=== PATIENT | female | born 1950 | race Caucasian/White ===

== ENCOUNTER 2020-11-14 13:22 | Emergency (ER) | payer MEDICARE ==
[2020-11-14 13:35] VITALS: RESP 18
--- NOTE | 2020-11-14 14:59 | CT ---
EXAMINATION TYPE: CT brain reena guzmán DATE OF EXAM: 11/14/2020 COMPARISON: None available HISTORY: Fall. CT DLP: 1465.3 mGycm Automated exposure control for dose reduction was used. TECHNIQUE: CT scan of the head and cervical spine are performed without contrast. Sagittal and yousif l reformatted images were obtained FINDINGS: Head: No acute intracranial hemorrhage, mass effect, or midline shift. Ventricles are of normal caliber wit hout hydrocephalus. No definite evidence of large vessel territorial infarction. Mild diffuse decreas ed attenuation within the periventricular white matter likely chronic small vessel ischemic change. Calvarium appears intact. Visualized paranasal sinuses and mastoid air cells appear clear. Bilateral globes appear symmetric and unremarkable. Cervical spine: Lumbar vertebral body heights are maintained. Straightening of the cervical lordosis, which may relat e to patient positioning or muscle spasm. No acute fracture or traumatic subluxation. Advanced multil evel degenerative disc changes most pronounced at the level of C6-7 with disc height loss and osteoph yte formation. Advanced facet arthropathy most pronounced upper cervical spine eccentric to the left. Multilevel uncovertebral hypertrophy, right greater than left, most pronounced at the level of C5-6 on the right and C6-7 bilaterally. Varying degrees of neural foraminal narrowing throughout the cervi laverne spine which appears at least moderate to severe at C3-4 on the left, C4-5 on the left, and C5-6 o n the right. At least moderate spinal canal stenosis at the level of C6-7 secondary to posterior disc osteophyte complex. No prevertebral soft tissue swelling. Visualized lung apices appear clear. IMPRESSION: 1. No acute intracranial process. 2. No acute fracture or traumatic subluxation of the cervical spine. 3. Advanced multilevel degenerative changes of the cervical spine resulting in varying degrees of shaquille ral foraminal narrowing and at least moderate spinal canal stenosis at C6-7.
[2020-11-14] MEDS ORDERED: Acetaminophen-Codeine 300-30mg TAB PO STA (15:09)
--- NOTE | 2020-11-14 15:40 | XR ---
EXAMINATION TYPE: XR chest 2V DATE OF EXAM: 11/14/2020 COMPARISON: NONE HISTORY: Fall, right shoulder pain TECHNIQUE: Frontal and lateral views of the chest are obtained. FINDINGS: There is no focal air space opacity, pleural effusion, or pneumothorax seen. The cardiac silhouette size is within normal limits. Surgical changes consistent with total arthroplasties of the bilateral shoulders; otherwise, the osseous structures appear intact. Mild multilevel degenerative c hanges of the thoracic spine. IMPRESSION: No acute cardiopulmonary process.
--- NOTE | 2020-11-14 15:48 | XR ---
EXAMINATION TYPE: XR shoulder complete RT DATE OF EXAM: 11/14/2020 COMPARISON: NONE HISTORY: Fall, right shoulder pain TECHNIQUE: Frontal, scapular Y, and Grashey views of the right shoulder obtained. FINDINGS: Right shoulder total arthroplasty changes. Ossific fragment projecting over the inferior axillary rec ess on the frontal view is favored to represent heterotopic bone in the setting of prior surgery. No dislocation. Midclavicular and coracoclavicular distances are within normal limits. Visualized lung a ppears clear. IMPRESSION: 1. Postsurgical changes of right shoulder total arthroplasty. 2. Ossific fragment projecting over the inferior axillary recess on the frontal view which is favored to represent heterotopic bone in the setting of prior surgery. Recommend correlation with prior imag ing if available: Otherwise, CT can be obtained if clinically indicated. 3. No dislocation.
[2020-11-14] MEDS ORDERED: ACET/COD 300 MG/30 MG STARTER PACK 6 TAB BTL PO STA (16:59)
--- NOTE | 2020-11-14 17:04 | CT ---
EXAMINATION TYPE: CT shoulder RT wo con DATE OF EXAM: 11/14/2020 COMPARISON: Right shoulder radiograph same day HISTORY: Right shoulder pain after fall. CT DLP: 1001.2 mGycm Automated exposure control for dose reduction was used. TECHNIQUE: Enhanced axial CT images were obtained of the right shoulder without the administration of intravenous contrast. Sagittal and coronal reformatted images were obtained. 3-D post processing rec onstructions were performed on an independent workstation. FINDINGS: Surgical changes consistent with total arthroplasty of the right shoulder. Ossific fragment inferior to the inferior margin the humeral head which does not have well-corticated margins throughout its superior aspect and may represent fractured osteophyte. No dislocation. Acromioclavicular and coracoclavicular distances are within normal limits. Partially visualized lung demonstrates dependent atelectasis and otherwise clear. IMPRESSION: 1. Right total shoulder arthroplasty. 2. Ossific fragment inferior to the inferior margin of the humeral head may represent a fractured ost eophyte. Recommend correlation with prior imaging.
--- NOTE | 2020-11-14 17:13 | ED ---
Fall HPI - General Chief Complaint: Fall Stated Complaint: fall Time Seen by Provider: 11/14/20 13:29 Source: EMS Mode of arrival: EMS - History of Present Illness Initial Comments: 70-year-old female presents to emergency Department with the chief complaint of a fall. She states this occurred about one hour prior to arrival. Patient brought to the ED via EMS. She was given 100 g of fentanyl in the ambulance. She had a c-collar on arrival. Patient reports she was at religious when she was going down the stairs, had a trip and fall accident and fell down 3 stairs and landed mostly on the right side of her body. She does not recall significant injury to her head but does report pain and right shoulder. Nothing also consciousness and blood thinners. States mostly the pain is located in the right shoulder she does have previous surgery and hardware in the region. States she has pain with abduction of the arm, especially above 90. Denies any paresthesias or weakness in the arm. Denies any blurry vision: Sided weakness and paresthesias. Denies any other complaints. - Related Data Home Medications Medication Instructions Recorded Confirmed Aspirin EC [Ecotrin Low Dose] 81 mg PO DAILY 11/14/20 11/14/20 Cyanocobalamin (Vitamin B-12) 1,000 mcg PO DAILY 11/14/20 11/14/20 [Vitamin B-12] DULoxetine HCL [Cymbalta] 60 mg PO DAILY 11/14/20 11/14/20 Famotidine [Pepcid] 20 mg PO DAILY 11/14/20 11/14/20 Levothyroxine Sodium [Synthroid] 50 mcg PO DAILY 11/14/20 11/14/20 Nystatin 100,000 Unit/gm Powd 1 applic TOPICAL BID PRN 11/14/20 11/14/20 [Mycostatin Powder] Primidone [Mysoline] 50 mg PO BID 11/14/20 11/14/20 Rosuvastatin [Crestor] 10 mg PO HS 11/14/20 11/14/20 Zolpidem [Ambien] 10 mg PO HS PRN 11/14/20 11/14/20 rOPINIRole HCL [Requip] 1 - 2 mg PO HS PRN 11/14/20 11/14/20 Allergies Allergy/AdvReac Type Severity Reaction Status Date / Time Iodinated Contrast Media Allergy Anaphylaxis Verified 11/14/20 16:09 Review of Systems ROS Statement: Those systems with pertinent positive or pertinent negative responses have been documented in the HPI. ROS Other: All systems not noted in ROS Statement are negative. Past Medical History Past Medical History: COPD, Hypertension History of Any Multi-Drug Resistant Organisms: None Reported Past Surgical History: Hysterectomy, Joint Replacement, Orthopedic Surgery Additional Past Surgical History / Comment(s): spinal stenosis,bilat shoulder replacement Past Psychological History: Depression Smoking Status: Never smoker Past Alcohol Use History: None Reported Past Drug Use History: Marijuana General Exam Limitations: no limitations General appearance: alert, in no apparent distress Head exam: Present: atraumatic, normocephalic, normal inspection. Absent: other (Negative Macdonald sign, raccoon eyes, hemotympanum.) Eye exam: Present: normal appearance, PERRL, EOMI. Absent: scleral icterus, conjunctival injection, nystagmus Pupils: Present: normal accommodation ENT exam: Present: normal exam, normal oropharynx, mucous membranes moist, TM's normal bilaterally, normal external ear exam Neck exam: Present: normal inspection, full ROM. Absent: tenderness, lymphadenopathy Respiratory exam: Present: normal lung sounds bilaterally. Absent: respiratory distress, wheezes, rales, rhonchi, stridor Cardiovascular Exam: Present: regular rate, normal rhythm, normal heart sounds. Absent: systolic murmur, diastolic murmur GI/Abdominal exam: Present: soft. Absent: distended, tenderness, guarding, rebound, rigid Extremities exam: Present: normal inspection, tenderness (Posterior deltoid tenderness), normal capillary refill, other (Palpable ulnar and radial pulses bilaterally. Palpable DP and PT bilaterally. Sensation intact in bilateral upper and lower extremities.). Absent: full ROM (Laboratory range of motion with abduction above 90), pedal edema, joint swelling, calf tenderness Back exam: Present: normal inspection, full ROM. Absent: tenderness, CVA tenderness (R), CVA tenderness (L), muscle spasm, paraspinal tenderness, vertebral tenderness Neurological exam: Present: alert, oriented X3, CN II-XII intact Psychiatric exam: Present: normal affect, normal mood Skin exam: Present: warm, dry, intact, normal color Course Vital Signs 11/14/20 11/14/20 11/14/20 13:24 15:36 17:31 Temperature 98.5 F 98 F Pulse Rate 57 L 58 L 59 L Respiratory 18 18 18 Rate Blood Pressure 114/52 109/51 109/56 O2 Sat by Pulse 95 97 95 Oximetry Medical Decision Making - Medical Decision Making 70-year-old female presenting to emergency Department with a chief complaint of fall. On physical examination, posterior deltoid tenderness with limited range of motion with abduction. No obvious signs of head trauma. She had a c-collar in place on arrival. Patient was given Tylenol 3 for pain. X-ray of the right shoulder reveal postsurgical changes with total arthroplasty. There was also a fragment projecting along the anterior axillary process which was of questionable importance. Radiology recommended CT imaging. CT revealed a fragment inferior to the inferior margins of the humeral head which may rep resent a fractured osteophyte. Patient was given a sling. Chest x-ray was remarkable. CT of the brain and C-spine show no acute findings. The c-collar was cleared. Patient will be discharged with a Tylenol 3 starter pack. I gave her contact information for antenna specialist. Strict return parameters were thoroughly discussed patient was understanding and agreeable. Case discussed with physician. Disposition Clinical Impression: Fall, Right shoulder injury Disposition: HOME SELF-CARE Condition: Stable Instructions (If sedation given, give patient instructions): Fall Prevention (ED) Additional Instructions: Follow-up with antenna specialist. Return to emergency department if symptoms worsen. Is patient prescribed a controlled substance at d/c from ED?: No Referrals: Nonstaff,Physician [Primary Care Provider] - 1-2 days César Meraz MD [STAFF PHYSICIAN] - 1-2 days Time of Disposition: 17:13
[2020-11-14] MEDS ORDERED: MORPHINE SULFATE 4 MG/ML SYRINGE IVP STA (17:20)
[2020-11-14 17:34] VITALS: BP 109/56; PULSE 59; TEMP 98
== END 2020-11-14 17:36 | disposition home or self-care (01) ==
LOC: EC 13:22
DX: S49.91XA Unspecified injury of right shoulder and upper arm, initial encounter (principal); I10 Essential (primary) hypertension; J44.9 Chronic obstructive pulmonary disease, unspecified; Z91.041 Radiographic dye allergy status; W10.9XXA Fall (on) (from) unspecified stairs and steps, initial encounter; Y92.22 Religious institution as the place of occurrence of the external cause
CPT/HCPCS: 73030; 71046; 72125; 70450; 73200; 99284; 96374; J2270

== ENCOUNTER → 2021-06-23 | Outpatient (CLI) | payer MEDICARE, OTHER ==
--- NOTE | 2021-07-01 11:28 | MM ---
Reason for exam: screening (asymptomatic). Last mammogram was performed 8 years and 1 month ago. History: Patient is postmenopausal. Physical Findings: A clinical breast exam by your physician is recommended on an annual basis and results should be correlated with mammographic findings. MG 3D Screening Mammo W/Cad Bilateral CC and MLO view(s) were taken. Prior study comparison: May 14, 2013, mammogram, performed at [place]. There are scattered fibroglandular densities. There are benign appearing round calcifications bilaterally. There is chronic nodularity in the left breast. There is no discrete abnormality. ASSESSMENT: Benign, BI-RAD 2 RECOMMENDATION: Routine screening mammogram of both breasts in 1 year.
== END | disposition home or self-care (01) ==
LOC: RADMAMWWP 13:59
PROVIDERS: ATTEND Internal Medicine
DX: Z12.31 Encounter for screening mammogram for malignant neoplasm of breast (principal)
CPT/HCPCS: 77063; 77067

== ENCOUNTER → 2021-07-18 | Outpatient (CLI) | payer MEDICARE, OTHER ==
--- NOTE | 2021-07-18 22:54 | BD ---
EXAMINATION TYPE: Axial Bone Density DATE OF EXAM: 07/18/2021 COMPARISON: NONE CLINICAL HISTORY: 70 years year old Female. ICD-10 CODE: Z78.0 POST MENOPAUSAL Height: 62.9 IN Weight: 201 LBS FRAX RISK QUESTIONS: History of Fracture in Adulthood: RT WRIST AGE 70 Secondary Osteoporosis: 3. Menopause before 45: TOTAL HYST AGE 34 Rheumatoid Arthritis: YES RISK FACTORS HISTORY OF: History of Wrist Fracture: RT WRIST AGE 70 Active: YES Diet low in dairy products/other sources of calcium: YES Postmenopausal woman: TOTAL HYST AGE 34 MEDICATIONS: Thyroid Medications: YES Which medication: Levothyroxine How Lon+ YEARS Additional Medications: LEVOTHYROXINE, CRESTOR, METOPROLOL, CYMBALTA, GABAPENTIN, ASPIRIN 81 MG, B12, AMBIEN, PRIMIDONE, ROPINIROLE, EXAM MEASUREMENTS: Bone mineral densitometry was performed using the [employer]Event System. Bone mineral density as measured about the Lumbar spine is: ----- L1-L4(G/cm2): 1.526 T Score Values are as follows: ----- L1: 2.2 ----- L2: 2.3 ----- L3: 3.1 ----- L4: 3.7 ----- L1-L4: 2.9 Bone mineral density BASELINE Bone mineral density about the R hip (g/cm2): 0.823 Bone mineral density about the L hip (g/cm2): 0.820 T Score values are as follows: -----R Neck: -1.5 -----L Neck: -1.6 -----R Total: -0.4 -----L Total: -0.5 Bone mineral density BASELINE FRAX%s: The graph provided illustrates a 19.2 chance for a major osteoporotic fx and a 3.1 chance for the hips probability for fx in 10 years time. IMPRESSION: Osteopenia (T Score between -2.5 and -1). There is slightly increased risk of fracture and the patient may be considered for treatment. Re-Screen 2-5 years. NOTE: T-SCORE=SD OF THE YOUNG ADULT MEAN.
== END | disposition home or self-care (01) ==
LOC: RADBDWWP 15:02
PROVIDERS: ATTEND Internal Medicine
DX: Z00.00 Encounter for general adult medical examination without abnormal findings (principal); Z13.820 Encounter for screening for osteoporosis; Z78.0 Asymptomatic menopausal state; E03.9 Hypothyroidism, unspecified; I10 Essential (primary) hypertension; E78.2 Mixed hyperlipidemia; F41.8 Other specified anxiety disorders; M12.9 Arthropathy, unspecified; N39.46 Mixed incontinence; Z68.37 Body mass index [BMI] 37.0-37.9, adult; Z78.9 Other specified health status
CPT/HCPCS: 77080

== ENCOUNTER 2022-04-21 14:32 | Emergency (ER) | payer MEDICARE, OTHER ==
[2022-04-21 14:48] VITALS: TEMP 97.9
--- NOTE | 2022-04-21 15:19 | ED ---
General Adult HPI - General Chief complaint: Fall Stated complaint: Fall/Head injury Time Seen by Provider: 04/21/22 15:17 Source: patient, EMS Mode of arrival: EMS Limitations: no limitations - History of Present Illness Initial comments: Patient presents to the ED by ambulance for evaluation. Patient states that she tripped over a step while at the bank this afternoon, causing her to fall forward onto her hands and knees. Patient states that she also hit her left frontal head on the ground when she fell. Patient is currently complaining of having bilateral knee pain and a left frontal headache where she hit her head. Patient denies any other injury or site of pain. Patient states that she has been ambulatory since falling, and she states that she was able to walk into the bank after falling. Patient denies anticoagulant medication use. Patient states that her tetanus is up-to-date. Patient denies LOC/syncope, focal numbness/weakness/neuro deficit, visual changes, speech difficulty, neck/back/upper extremity/hip pain, chest pain, dyspnea, palpitations, dizziness, abdominal pain, nausea or vomiting, or any other symptoms or compla ints. - Related Data Home Medications Medication Instructions Recorded Confirmed Aspirin EC [Ecotrin Low Dose] 81 mg PO DAILY 11/14/20 11/14/20 Cyanocobalamin (Vitamin B-12) 1,000 mcg PO DAILY 11/14/20 11/14/20 [Vitamin B-12] DULoxetine HCL [Cymbalta] 60 mg PO DAILY 11/14/20 11/14/20 Famotidine [Pepcid] 20 mg PO DAILY 11/14/20 11/14/20 Levothyroxine Sodium [Synthroid] 50 mcg PO DAILY 11/14/20 11/14/20 Nystatin 100,000 Unit/gm Powd 1 applic TOPICAL BID PRN 11/14/20 11/14/20 [Mycostatin Powder] Primidone [Mysoline] 50 mg PO BID 11/14/20 11/14/20 Rosuvastatin [Crestor] 10 mg PO HS 11/14/20 11/14/20 Zolpidem [Ambien] 10 mg PO HS PRN 11/14/20 11/14/20 rOPINIRole HCL [Requip] 1 - 2 mg PO HS PRN 11/14/20 11/14/20 Allergies Allergy/AdvReac Type Severity Reaction Status Date / Time Iodinated Contrast Media Allergy Anaphylaxis Verified 11/14/20 16:09 Review of Systems ROS Statement: Those systems with pertinent positive or pertinent negative responses have been documented in the HPI. ROS Other: All systems not noted in ROS Statement are negative. Past Medical History Past Medical History: COPD, Hypertension History of Any Multi-Drug Resistant Organisms: None Reported Past Surgical History: Hysterectomy, Joint Replacement, Orthopedic Surgery Additional Past Surgical History / Comment(s): spinal stenosis,bilat shoulder replacement Past Psychological History: Depression Smoking Status: Never smoker Past Alcohol Use History: None Reported Past Drug Use History: None Reported General Exam Limitations: no limitations General appearance: alert, in no apparent distress Head exam: Present: atraumatic, normocephalic Eye exam: Present: normal appearance, PERRL, EOMI ENT exam: Present: mucous membranes moist, TM's normal bilaterally Neck exam: Present: full ROM, other (Trachea is in midline). Absent: tenderness Respiratory exam: Present: normal lung sounds bilaterally. Absent: respiratory distress, wheezes, rales, rhonchi, stridor, chest wall tenderness Cardiovascular Exam: Present: regular rate, normal rhythm, normal heart sounds, other (Normal radial and dorsalis pedis pulses bilaterally) GI/Abdominal exam: Present: soft. Absent: distended, tenderness, guarding Extremities exam: Present: full ROM, other (Pelvis is stable and nontender; patient has full range of motion at bilateral hips and knees; left anterior knee abrasion, swelling and ecchymosis is noted on exam; mild bilateral knee tenderness) Back exam: Absent: tenderness Neurological exam: Present: alert, oriented X3, CN II-XII intact. Absent: motor sensory deficit Psychiatric exam: Present: normal affect, normal mood Skin exam: Present: warm, dry, normal color Course Vital Signs 04/21/22 14:42 Temperature 97.9 F Pulse Rate 54 L Respiratory 16 Rate Blood Pressure 128/67 O2 Sat by Pulse 98 Oximetry Medical Decision Making - Medical Decision Making Was pt. sent in by a medical professional or institution (, PA, NETWORK SYSTEMS ENGINEER, urgent care, hospital, or prison...) When possible be specific @ -[No] Did you speak to anyone other than the patient for history (EMS, parent, family, police, friend...)? What history was obtained from this source @ -[No] Did you review nursing and triage notes (agree or disagree)? Why? @ -[I reviewed and agree with nursing and triage notes] Were old charts reviewed (outside hosp., previous admission, EMS record, old EKG, old radiological studies, urgent care reports/EKG's, prison records)? Report findings @ -[No old charts were reviewed] Differential Diagnosis (chest pain, altered mental status, abdominal pain women, abdominal pain men, vaginal bleeding, weakness, fever, dyspnea, syncope, headache, dizziness, GI bleed, back pain, seizure, CVA, palpatations, mental health)? @ -Fall, fracture, contusion, hematoma, sprain, head injury, intracranial hemorrhage, abrasion EKG interpreted by me (3pts min.). @ -None done X-rays interpreted by me (1pt min.). @ -Negative bilateral knee x-rays CT interpreted by me (1pt min.). @ -No U/S interpreted by me (1pt. min.). @ -[None done] What testing was considered but not performed or refused? (CT, X-rays, U/S, labs)? Why? @ -[None] What meds were considered but not given or refused? Why? @ -[None] Did you discuss the management of the patient with other professionals (professionals i.e. , PA, NETWORK SYSTEMS ENGINEER, lab, RT, psych nurse, clinical social work therapist, superintendent system operation, teacher, correctional officer, continuous pillowcase cutter)? Give summary @ -[No] Was smoking cessation discussed for >3mins.? @ -[No] Was critical care preformed (if so, how long)? @ -[No] Were there social determinants of health that impacted care today? How? (Homelessness, low income, unemployed, alcoholism, drug addiction, transportation, low edu. Level, literacy, decrease access to med. care, [facility], rehab)? @ -[No] Was there de-escalation of care discussed even if they declined (Discuss DNR or withdrawal of care, Hospice)? DNR status @ -[No] What co-morbidities impacted this encounter? (DM, HTN, Smoking, COPD, CAD, Cancer, CVA, ARF, Chemo, Hep., AIDS, mental health diagnosis, sleep apnea, morbid obesity)? @ -[None] Was patient admitted / discharged? Hospital course, mention meds given and route, prescriptions, significant lab abnormalities, going to OR and other pertinent info. @ -Patient's imaging studies are negative for acute abnormality. Patient denies development of any new pain or symptoms while in the ED. Patient was counseled about contusions, abrasions and head injuries. Patient was clearly explained return and follow-up instructions, and she feels comfortable being discharged home at this time. Patient was instructed to follow up closely with her primary care provider. Patient to get a ride home from the ED this evening. Undiagnosed new problem with uncertain prognosis? @ -[No] Drug Therapy requiring intensive monitoring for toxicity (Heparin, Nitro, Insulin, Cardizem)? @ -[No] Were any procedures done? @ -[No] Diagnosis/symptom? @ -[default] Acute, or Chronic, or Acute on Chronic? @ -Mechanical fall with head injury, left knee abrasion and bilateral knee contusions Uncomplicated (without systemic symptoms) or Complicated (systemic symptoms)? @ -Uncomplicated Side effects of treatment? @ -[No] Exacerbation, Progression, or Severe Exacerbation? @ -[No] Poses a threat to life or bodily function? How? (Chest pain, [place], [place], pneumonia, PE, COPD, DKA, ARF, appy, cholecystitis, CVA, Diverticulitis, Homicidal, Suicidal, threat to staff... and all critical care pts) @ -[No] - Radiology Data Noncontrast head CT: No acute intracranial process. Bilateral knee x-rays: There is no acute fracture or dislocation in either knee. Fairly advanced degenerative changes are present bilaterally. Disposition Clinical Impression: Fall, Head injury, Abrasion of left knee, Contusion, knee Disposition: HOME SELF-CARE Condition: Stable Instructions (If sedation given, give patient instructions): Fall Prevention for Older Adults (ED), Head Injury (ED), Contusion in Adults (ED), Abrasion (ED), Knee Pain (ED) Additional Instructions: Return to the ER immediately should you develop new or worsening pain or symptoms. Follow up closely with your primary care provider. Is patient prescribed a controlled substance at d/c from ED?: No Referrals: Javier Mcrae DO [Primary Care Provider] - 1-2 days Time of Disposition: 17:26
--- NOTE | 2022-04-21 16:33 | XR ---
EXAMINATION TYPE: XR knee complete bilateral DATE OF EXAM: 04/21/2022 CLINICAL HISTORY: Bilaterally with bilateral pain TECHNIQUE: Three views of the bilateral knees are obtained. COMPARISON: None. FINDINGS: There is no acute fracture/dislocation evident in either knee. There is moderate to severe medial tibiofemoral compartment joint space loss bilaterally. There is moderate to severe patellofem oral compartment joint space loss with large bony projections including probable loose body on the ri ght superiorly. Meniscal calcifications are felt present raising concern for underlying chondrocalcin osis. Small to moderate-sized left-sided suprapatellar joint effusion suspected. Overlying soft tissu e is unremarkable bilaterally. IMPRESSION: There is no acute fracture or dislocation in either knee. Fairly advanced degenerative c hanges are present bilaterally.
--- NOTE | 2022-04-21 17:06 | CT ---
EXAMINATION TYPE: CT brain wo con CT DLP: 1107.4 mGycm, Automated exposure control for dose reduction was used. DATE OF EXAM: 04/21/2022 4:45 PM COMPARISON: 11/14/2020. CLINICAL INDICATION:Female, 71 years old with history of fall, head injury, Fall, head injury TECHNIQUE: Brain: Axial CT images of the brain were obtained with coronal and sagittal reformats created and rev iewed. Contrast used: None. Oral contrast used: None. FINDINGS: Brain: Extra-axial spaces: No abnormal extra-axial fluid collections. Ventricular system: Within normal limits Cerebral parenchyma: No acute intraparenchymal hemorrhage or mass effect. The messer-white junction is well differentiated. Cerebellum: Unremarkable. Mass effect: No evidence of midline shift. Intracranial vasculature: unremarkable Soft tissues: Normal. Calvarium/osseous structures: No depressed skull fracture. Paranasal sinuses and mastoid air cells: Mild scattered paranasal sinus disease. Visualized orbits: Orbital contents are intact. IMPRESSION: No acute intracranial process.
[2022-04-21 17:35] VITALS: BP 123/65; PULSE 55; RESP 18
== END 2022-04-21 17:35 | disposition home or self-care (01) ==
LOC: EC 14:32
DX: S80.02XA Contusion of left knee, initial encounter (principal); S09.90XA Unspecified injury of head, initial encounter; J44.9 Chronic obstructive pulmonary disease, unspecified; I10 Essential (primary) hypertension; F32.A Depression, unspecified; Z91.041 Radiographic dye allergy status; Z79.82 Long term (current) use of aspirin; Z79.899 Other long term (current) drug therapy; W01.119A Fall on same level from slipping, tripping and stumbling with subsequent striking against unspecified sharp object, initial encounter
CPT/HCPCS: 70450; 99285

== ENCOUNTER → 2022-06-22 | Outpatient (CLI) | payer MEDICARE, OTHER ==
[2022-06-22 10:11] VITALS: BP 124/73; PULSE 62; RESP 18; TEMP 98.4
--- NOTE | 2022-06-22 14:44 | P.PAINPG ---
PQRS Measure Charge Sheet Comment: HISTORY OF PRESENT ILLNESS: 71 yr old female as a referral from Dr James presents today w severe and chronic LBP secondary to DDD, spondylosis and facet arthropathy without myelopathy for evaluation. Pt states pain level is provoked at 7 /10 in intensity, constant, localized in the lumbar spine, sharp in character w shooting pain towards the L hip. Pain is provoked by weight bearing activity. Pain is alleviated by use of a wheelchair for ambulatory assistance, medications (Neurontin, Tramadol, Tyl Arthritis), topical injections, heating pad use, repositioning and rest. Pt participated in PT in the late right before she moved to [place] but the overexertion provoked pain and she could not finish the sessions. Also admits to chiropractic treatments when she needed to use a cane for ambulatory assistance while living in [place] in the early- mid but those sessions were ineffective in reducing pain. She tries to do PT guided home stretches weekly as tolerated but many times pain is provoked so she can not do them more than a few times a week. She is wheelchair bound currently due to weight bearing activity provoking intractable pain. PMH: OA, COPD, HTN, MDD, RLS PSH: Hysterectomy, BL Shoulder Replacement, Cholecystectomy SH: Negative x3 FH: Non contributory All: See list Meds: See list REVIEW OF ORGAN SYSTEMS: CONSTITUTIONAL: No fevers or chills. No recent weight loss. NEUROLOGICAL: + numbness and tingling along the distal extremities. No seizure disorders or headaches. MUSCULOSKELETAL: + pain PSYCHIATRIC: Denies current depression or suicidal thoughts. Physical Examinations : Constitutional : Cooperative , not in acute distress . Neurologic : Cranial nerve II to XII intact. No focal neurological deficits. Psychiatric : alert & oriented x 3. Matching mood & appropriate affect. Judgment & insight intact. Musculoskeletal : Cervical Spine Motor strength in the deltoid and biceps: Normal right side. Normal Left side Motor strength biceps and the wrist extensors: Normal right side . Normal left side Motor strength in the triceps muscle: Normal right side. Normal left side Deep tendon reflexes: Normal at the biceps. Normal at Brachioradialis. Normal at triceps Vertebral body tenderness to deep palpation over Cervical facet loading test: positive bilaterally Spurling test: positive bilaterally Neck distraction test: positive bilaterally Kishor sign: positive bilaterally Lumbar spine Motor strength lower extremities ,thigh and legs 5/5 Right side , 5/5 Left side Deep tendon reflexes : Normal Knee Jerk. Normal Ankle Jerk Vertebral body tenderness over L2 Lumbar facet Loading Test: positive Right / positive Left Range of motion of the lumbar spine Flexion 30 degrees, extension 10 degrees Straight Leg Raise test: Left/ Right positive at degree Adeola test: positive right / positive left. Severe tenderness over the Sacroiliac joint on the Right / Left sides Gaenslen test: positive bilaterally Seated flexion test: positive bilaterally. Sacral spine : Severe tenderness over the Sacroiliac joint: right side / left side Range of motion: Flexion of the lumbar spine <60 degrees Range of motion: Extension of the lumbar spine <20 degrees Gaenslen's Test positive Faustino's Test positive Adeola test: positive right side / left side Thigh Thrust Test Sacral Thrust Test Imaging: MRI without contrast of the lumbar spine from 12/01/21 reviewed Assessment/ Plan : Lumbar DDD Recommendation of L TFESI L1-L2 #1. May need a series of injections for optimal pain relief. Risks, benefits of procedure discussed and patient verbalized understanding. Admits to aspirin or anti- coagulant use or medical history of diabetes. Protocol for discontinuation/ continuation of medications brandon procedure discussed. All questions answered. I have spent greater than 30 minutes on patient care today. Dr Jara was available by phone for the evaluation of this patient. The time was used to review the medical records including relevant urine studies and Prescription history (MAPs), review of the available imaging, evaluation and examination of the patient, coordination of care with the medical staff and if applicable referring physicians, as well as creation of the medical record - Pain Location Lower Back Non-Pharmacological Interventions: Heat, Inactivity, Physical Therapy, Sitting Pharmacological Interventions: PRN Medication, Scheduled Medication, Topical Medication Home Medications: Ambulatory Orders Aspirin EC [Ecotrin Low Dose] 81 mg PO DAILY 11/14/20 Cyanocobalamin (Vitamin B-12) [Vitamin B-12] 1,000 mcg PO DAILY 11/14/20 DULoxetine HCL [Cymbalta] 60 mg PO DAILY 11/14/20 Famotidine [Pepcid] 20 mg PO DAILY 11/14/20 Levothyroxine Sodium [Synthroid] 50 mcg PO DAILY 11/14/20 Nystatin 100,000 Unit/gm Powd [Mycostatin Powder] 1 applic TOPICAL BID PRN 11/14/20 Primidone [Mysoline] 50 mg PO BID 11/14/20 Rosuvastatin [Crestor] 10 mg PO HS 11/14/20 Zolpidem [Ambien] 10 mg PO HS PRN 11/14/20 rOPINIRole HCL [Requip] 1 - 2 mg PO HS PRN 11/14/20 ALPRAZolam [Xanax] 1 mg PO HS 06/22/22 Acetaminophen [Tylenol 8 Hour] 650 mg PO Q12HR PRN 06/22/22 Cyanocobalamin (Vitamin B-12) [Vitamin B-12] 1,000 mcg PO DAILY 06/22/22 Gabapentin [Neurontin] 100 mg PO TID 06/22/22 Metoprolol Succinate [Toprol XL] 100 mg PO DAILY 06/22/22 Mirabegron [Myrbetriq] 8 mg PO DAILY 06/22/22 Controlled Substance Measures - Controlled Substance Measures Is patient prescribed a controlled substance at discharge?: No
== END ==
LOC: PNWHC3 09:40
PROVIDERS: ATTEND Specialist
DX: M51.36 Other intervertebral disc degeneration, lumbar region (principal); M50.123 Cervical disc disorder at C6-C7 level with radiculopathy; G89.29 Other chronic pain; M19.90 Unspecified osteoarthritis, unspecified site; I10 Essential (primary) hypertension; F32.9 Major depressive disorder, single episode, unspecified; G25.81 Restless legs syndrome; Z91.041 Radiographic dye allergy status
CPT/HCPCS: 99211

== ENCOUNTER → 2023-11-19 | Outpatient (CLI) | payer MEDICARE, OTHER | END | disposition home or self-care (01) | LOC: LABWHC1 14:52 | PROVIDERS: ATTEND Ophthalmology | DX: M31.6 Other giant cell arteritis (principal) | CPT/HCPCS: 36415; 85652; 86140 ==

== ENCOUNTER → 2024-03-13 | Outpatient (CLI) | payer MEDICARE, OTHER ==
--- NOTE | 2024-03-13 14:35 | BD ---
EXAMINATION TYPE: Axial Bone Density DATE OF EXAM: 03/13/2024 CLINICAL HISTORY: 73 years old Female. ICD-10 CODE: Z780 MENOPAUSAL STATE , Additional History: Height: 62.5 Weight: 186 FRAX RISK QUESTIONS: Family History (Parent hip fracture): no History of Fracture in Adulthood: yes Secondary Osteoporosis: yes 3. Menopause before 45: yes Rheumatoid Arthritis: yes RISK FACTORS HISTORY OF: History of Rt Wrist Fracture: yes When: 2020 Surgery to Spine/Hip(right/left)/Wrist (right/left): no MEDICATIONS: Thyroid Medications: yes Which medication: Levothyroxine How Lon+ years Osteoporosis Medications: no EXAM MEASUREMENTS: Bone mineral densitometry was performed using the [employer] System. Bone mineral density as measured about the Lumbar spine is: ----- L1-L4(G/cm2): 1.659 T Score Values are as follows: ----- L1: 3.7 ----- L2: 4.5 ----- L3: 3.9 ----- L4: 3.8 ----- L1-L4: 4.0 Z Score Values are as follows: ----- L1: 4.8 ----- L2: 5.6 ----- L3: 5.0 ----- L4: 4.9 ----- L1-L4: 5.1 Bone mineral density has: Increased 8.7% since study of: 07/18/2021 Bone mineral density about the R hip (g/cm2): 0.955 Bone mineral density about the L hip (g/cm2): 0.931 T Score values are as follows: -----R Neck: -1.2 -----L Neck: -1.6 -----R Total: -0.4 -----L Total: -0.6 Z Score values are as follows: -----R Neck: 0.2 -----L Neck: -0.2 -----R Total: 0.8 -----L Total: 0.6 Bone mineral density has: Decreased -0.8% since study of: 07/18/2021 FRAX%s: The graph provided illustrates a 20.9% chance for a major osteoporotic fx and a 4.1% chance f or the hips probability for fx in 10 years time. IMPRESSION: Normal (Values between +1 and -1 indicate normal bone mass). Consider repeating this study in 5 year s or sooner if there is some new clinical indication. NOTE: T-SCORE=SD OF THE YOUNG ADULT MEAN. [facility], , 03/13/2024 2:33 PM
--- NOTE | 2024-03-17 18:13 | MM ---
Reason for Exam: Screening (asymptomatic). Last mammogram was performed 2 year(s) and 9 month(s) ago. Patient History: Menarche at age 12. First Full-Term at age 19. Left ovary removed at age 43. Right ovary removed at age 43. Hysterectomy at age 43. Postmenopausal. Risk Values: Erika 5 year model risk: 1.3%. NCI Lifetime model risk: 3.1%. Prior Study Comparison: 10/25/2009 Bilateral Screening Mammogram, [facility]. 05/14/2013 Screening Mammogram, [place]. 06/23/2021 Bilateral Screening Mammogram, [facility]. Tissue Density: There are scattered areas of fibroglandular density. Findings: Analyzed By CAD. Chronic nodularity left breast. Unchanged subareolar asymmetric density right breast. There is no suspicious group of microcalcifications or new suspicious mass in either breast. Overall Assessment: Benign, BI-RAD 2 Management: Screening Mammogram of both breasts in 1 year. Patient should continue monthly self-breast exams. A clinical breast exam by your physician is recommended on an annual basis. This exam should not preclude additional follow-up of suspicious palpable abnormalities. Note on Erika scores and lifetime risk: 1. A Erika score greater than 3% is considered moderate risk. If this is the case, consider specialist referral to assess eligibility for a risk reducing agent. 2. If overall lifetime risk for the development of breast cancer is 20% or higher, the patient may qualify for future screening with alternating mammogram and breast MRI. [facility], , 03/17/2024 6:10 PM. Electronically signed and approved by: Berkley Willis M.D. Radiologist
== END | disposition home or self-care (01) ==
LOC: RADBDWWP 10:10
PROVIDERS: ATTEND Family Medicine
DX: Z12.31 Encounter for screening mammogram for malignant neoplasm of breast (principal); Z78.0 Asymptomatic menopausal state; M06.9 Rheumatoid arthritis, unspecified; Z90.722 Acquired absence of ovaries, bilateral; R92.323 Mammographic fibroglandular density, bilateral breasts
CPT/HCPCS: 77063; 77067; 77080